=== PATIENT | male | born 1995 | race Caucasian/White ===

== ENCOUNTER → 2018-05-07 | Outpatient (CLI) | payer OTHER ==
[2014-09-20 23:30] VITALS: BP 115/71
== END ==
LOC: RAD 12:09 → LAB 12:09
DX: R51 Headache (principal); M54.2 Cervicalgia; M54.9 Dorsalgia, unspecified

== ENCOUNTER → 2018-05-13 | Outpatient (CLI) | payer OTHER ==
[2014-09-20 23:30] VITALS: BP 115/71
== END ==
LOC: VAS 15:56 → RAD 16:00 → VAS 16:00
DX: I37.2 Nonrheumatic pulmonary valve stenosis with insufficiency (principal); I49.9 Cardiac arrhythmia, unspecified

== ENCOUNTER → 2020-01-20 | Outpatient (CLI) | payer OTHER ==
[2014-09-20 23:30] VITALS: BP 115/71
[2020-01-20 13:56] LABS: BASO # 0.1 (0.02-0.10); EOS # 0.3 (0.04-0.40); EOS % 5.8 % (0.0-4.0); HEMATOCRIT 45.1 % (42.0-52.0); LYMPH# 1.7 (1.50-4.00); MEAN CELL VOLUME 92 fl (78-100); MEAN CORPUSCULAR HEMOGLOBIN 33 pg (27-31); MEAN CORPUSCULAR HGB CONC 36 g/dL (33-37); MEAN PLATELET VOLUME 9.7 fl (7.4-10.4); MONO # 0.6 (0.20-0.80); NEU # 3.1 (1.40-6.50); PLATELET COUNT 243 K/mm3 (130-400); RED BLOOD COUNT 4.91 M/mm3 (4.20-5.60); WHITE BLOOD COUNT 5.7 K/mm3 (4.8-10.8)
[2020-01-20 14:09] LABS: ALBUMIN 4.2 g/dL (3.5-5.0); POTASSIUM 3.9 mmol/L (3.5-5.1)
[2020-01-20 14:10] LABS: CALCIUM 9.3 mg/dL (8.3-10.5)
[2020-01-20 14:11] LABS: TOTAL PROTEIN 7.5 g/dL (6.4-8.3)
[2020-01-20 14:13] LABS: TOTAL BILIRUBIN 0.8 mg/dL (0.2-1.2)
== END ==
LOC: LAB 13:43
PROVIDERS: Family Medicine
DX: Z00.00 Encounter for general adult medical examination without abnormal findings (principal); E78.5 Hyperlipidemia, unspecified